=== PATIENT | male | born 1955 | race Caucasian/White ===

== ENCOUNTER 2024-02-23 10:14 | Outpatient (CLI) | payer MEDICARE, OTHER, SELFPAY | END 2024-02-23 10:15 | disposition home or self-care (01) | PROVIDERS: PCP Family Medicine; Visit Provider Family Medicine | DX: I48.0 Paroxysmal atrial fibrillation (principal); Z13.228 Encounter for screening for other metabolic disorders; Z13.220 Encounter for screening for lipoid disorders; Z12.5 Encounter for screening for malignant neoplasm of prostate | CPT/HCPCS: 80048; 80061; 85025; G0103 ==

== ENCOUNTER 2024-04-30 07:37 | Emergency (ER) | payer MEDICARE, OTHER, SELFPAY ==
[2024-04-30] VITALS (35 sets, daily range): BP systolic 95–130; BP diastolic 79–109; PULSE 89–154; RESP 18; TEMP 36.3; O2SAT 91–96; BMI 24.0
--- NOTE | 2024-04-30 08:02 | CRLHL7_ITS ---
For Patients: As a result of the Century Cures Act, medical imaging exams and procedure reports are released immediately into your electronic medical record. You may view this report before your referring provider. If you have questions, please contact your health care provider. INDICATION: Chest pain COMPARISON: None TECHNIQUE: AP semi-upright study FINDINGS: TUBES AND LINES: None. HEART AND MEDIASTINUM: Heart mildly enlarged. LUNGS AND PLEURAL SPACES: Perihilar and bilateral lower lobe airspace disease, [id number].This could be related to the asymmetric appearance/development of edema or an inflammatory process. No pleural effusion or pneumothorax. OSSEOUS STRUCTURES: Age-appropriate appearance. No acute focal finding. IMPRESSION: Mildly enlarged heart. Perihilar and bilateral lower lobe airspace disease, [id number]. Primary considerations are the asymmetric development of edema versus an inflammatory process. Normal pleural spaces. Dictated by Chandu Greer MD @ 04/30/2024 8:25:44 AM (Electronically Signed)
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
[2024-04-30 08:18] LABS: Basophils Percent Auto 0.3 % (0.0-3.0); Eosinophils Percent Auto 1.7 % (0.0-7.0); Hemoglobin* 15.5 gm/dL (13.5-17.5); Immature Granulocytes Pct Auto 0.1 %; Lymphocytes Percent Auto 63.8 % (20-44); Mean Corpuscular HGB Conc 32 gm/dL (32-36); Mean Corpuscular Hemoglobin 31 pg (26-34); Mean Corpuscular Volume 96 fL (80-100); Monocytes Percent Auto 4.3 % (0.0-11.0); Neutrophils Percent Auto 29.8 % (42.0-72.0); Platelet Count* 178 K/uL (140-440); RDW Coefficient of Variation % 15.3 % (11.5-15.5); Slide Review Reflex Yes; White Blood Count* 11.65 K/uL (4.50-11.00)
[2024-04-30 08:20] LABS: Troponin, Point-of-Care* 0.01 ng/ml (0.01-0.04)
[2024-04-30 08:30] LABS: Chloride* 106 mmol/L (96-114); Sodium* 141 mmol/L (135-149)
[2024-04-30 08:33] LABS: Anion Gap 6 mEq/L (7-15); Blood Urea Nitrogen* 18 mg/dL (7-30); Carbon Dioxide* 29 mmol/L (20-32); Creatinine* 1.1 mg/dL (0.5-1.5); Est. Creatinine Clearance* 59.59; Estimated Glomerular Filt Rate 72 ml/min
[2024-04-30 08:34] LABS: Calcium* 9.5 mg/dL (8.4-10.6); Glucose* 117 mg/dL (60-115)
[2024-04-30 08:35] LABS: Slide Review Acceptable Review (Acceptable)
[2024-04-30 08:39] LABS: D Dimer Quantitative* 1.58 ug/ml (0.00-0.50)
--- NOTE | 2024-04-30 08:41 | CRLHL7_ITS ---
For Patients: As a result of the 21st Century Cures Act, medical imaging exams and procedure reports are released immediately into your electronic medical record. You may view this report before your referring provider. If you have questions, please contact your health care provider. INDICATION: Chest pressure. COMPARISON: None TECHNIQUE: : CT examination of the chest was performed with the uneventful intravenous administration of 95 cc of Isovue 370 while thin axial sections were obtained from above the apices of the lungs to the lung bases. The examination was timed as a pulmonary artery angiogram. Please note that all CT scans at this facility use dose modulation, iterative reconstruction, and/or weight-based dosing when appropriate to reduce radiation dose to as low as reasonably achievable. FINDINGS: : HEART and MEDIASTINUM: The heart is enlarged. There is no mediastinal or hilar adenopathy or mass. A small pericardial effusion is noted. There is aneurysmal dilation of the aorta. This most affects the arch and the ascending aorta. Ascending aorta maximally measures about 5 centimeters. Please be aware that the bolus timing and this study was entirely pulmonary arterial and therefore I can not evaluate for the presence or absence of aortic dissection or other acute aortic pathology. PULMONARY ARTERIAL CIRCULATION: There is no visible intraluminal filling defect to suggest pulmonary embolus. LUNGS and PLEURAL SPACES: Thickened interlobular septa with areas of ground-glass and linear opacities at the lung bases. Small bilateral effusions, right greater than left. The findings primarily represent interstitial edema. There are areas of atelectasis have probably developing alveolar edema. No mark focal consolidation or mass. VISUALIZED UPPER ABDOMEN: The there has been a cholecystectomy. There is a left renal mass which is hyperdense measuring 2.8 centimeters. This could be a hyperdense cyst or a neoplasm. Follow-up formal evaluation recommended in the nonacute care setting. OSSEOUS STRUCTURES: Age-appropriate appearance. No acute fracture or destructive process. TUBES and LINES: None. IMPRESSION: 1. There is no finding of pulmonary embolus. 2. Fusiform aneurysmal dilation of the aorta, especially the ascending aorta and the arch. Maximum diameter of the ascending aorta is 5 centimeters. Bolus timing is purely pulmonary arterial and therefore I can not evaluate for aortic dissection or other acute aortic pathology on this exam. 3. Lung findings suggest a combination of interstitial edema with mild alveolar edema and dependent atelectasis. Small bilateral effusions, right greater than left. No focal consolidation or mass. 4. Left renal mass measuring 2.8 centimeters could be a hyperdense cyst or a neoplasm. Follow-up evaluation recommended in the nonacute setting. Please note that all CT scans at this facility use dose modulation, iterative reconstruction, and/or weight-based dosing when appropriate to reduce radiation dose to as low as reasonably achievable. Dictated by Chandu Greer MD @ 04/30/2024 9:36:27 AM (Electronically Signed)
[2024-04-30] MEDS: dilTIAZem 5 MG/ML inj 18 MG IVP (08:44)
[2024-04-30 08:46] LABS: Troponin I* < 0.01 ng/mL (0.01-0.04)
[2024-04-30 10:07] LABS: NT Pro B Type NatriureticPept* 2310 pg/mL
[2024-04-30] MEDS: dilTIAZem 5 MG/ML inj 25 MG IVP (10:14)
[2024-04-30] MEDS: dilTIAZem 120 MG CAP.ER.24H PO (13:48)
== END 2024-04-30 14:15 | disposition home or self-care (01) ==
PROVIDERS: Internal Medicine; Emergency Provider Student in an Organized Health Care Education/Training Program; PCP Family Medicine
DX: I48.91 Unspecified atrial fibrillation (principal)
CPT/HCPCS: 36415; 71045; 71275; 80048; 83880; 84484; 85025; 85379; 93005; 99283; 99284; 99285; A9270; Q9967

== ENCOUNTER 2024-05-07 12:40 | Inpatient (IN) | payer MEDICARE, OTHER, SELFPAY ==
[2024-05-07] VITALS (40 sets, daily range): BP systolic 91–120; BP diastolic 68–109; PULSE 75–145; RESP 18–28; TEMP 36.6–36.7; O2SAT 89–96; BMI 24.4; BMI 25.7
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
--- NOTE | 2024-05-07 13:17 | CRLHL7_ITS ---
For Patients: As a result of the Century Cures Act, medical imaging exams and procedure reports are released immediately into your electronic medical record. You may view this report before your referring provider. If you have questions, please contact your health care provider. Indication: Rapid heart rate Comparison: Single-view chest April 30, 2024 Technique: Single AP view chest Findings: There is hyperinflation and chronic interstitial change. There are increased interstitial markings likely representing pulmonary edema. There is minimal basilar atelectasis and parenchymal scar. There is no pneumothorax. The cardiac silhouette is mildly prominent with minimal aortic tortuosity. The bony thorax is grossly intact. Impression: Mildly increased interstitial markings likely representing mild pulmonary edema. Dictated by Chilo Rooney MD @ 05/07/2024 4:34:53 PM (Electronically Signed)
[2024-05-07] MEDS: 0.9 % SODIUM CHLORIDE 1000 ml 1,000 ML IV (13:35)
[2024-05-07] MEDS: dilTIAZem 5 MG/ML inj 10 MG IVP ×2 (13:36→14:38)
[2024-05-07 13:51] LABS: Basophils Percent Auto 0.3 % (0.0-3.0); Eosinophils Percent Auto 1.1 % (0.0-7.0); Hematocrit 46.2 % (37.0-53.0); Hemoglobin* 14.8 gm/dL (13.5-17.5); Immature Granulocytes Pct Auto 0.2 %; Lymphocytes Percent Auto 54.5 % (20-44); Mean Corpuscular HGB Conc 32 gm/dL (32-36); Mean Corpuscular Hemoglobin 31 pg (26-34); Mean Corpuscular Volume 97 fL (80-100); Monocytes Percent Auto 5.2 % (0.0-11.0); Neutrophils Percent Auto 38.7 % (42.0-72.0); Platelet Count* 173 K/uL (140-440); RDW Coefficient of Variation % 15.1 % (11.5-15.5); Red Blood Count 4.77 m/uL (4.30-5.90); White Blood Count* 11.37 K/uL (4.50-11.00)
[2024-05-07 13:58] LABS: Troponin, Point-of-Care* 0.01 ng/ml (0.01-0.04)
[2024-05-07 13:59] LABS: Slide Review Reflex Yes
[2024-05-07 14:07] LABS: Chloride* 104 mmol/L (96-114)
[2024-05-07 14:08] LABS: Potassium* 4.7 mmol/L (3.6-5.1); Sodium* 137 mmol/L (135-149)
[2024-05-07 14:10] LABS: Alkaline Phosphatase* 70 U/L (40-150); Anion Gap 7 mEq/L (7-15); Aspartate Amino Transferase* 110 U/L (12-35); Bilirubin Total* 0.5 mg/dL (0.1-1.5); Carbon Dioxide* 26 mmol/L (20-32); Creatinine* 1.2 mg/dL (0.5-1.5); Est. Creatinine Clearance* 56.46; Estimated Glomerular Filt Rate 65 ml/min; Total Protein* 6.5 g/dL (6.0-8.3)
[2024-05-07 14:11] LABS: Alanine Aminotransferase* 132 U/L (4-50); Blood Urea Nitrogen* 26 mg/dL (7-30); Calcium* 9.3 mg/dL (8.4-10.6); Glucose* 103 mg/dL (60-115); Magnesium* 2.4 mg/dL (1.5-2.6)
[2024-05-07 14:13] LABS: Slide Review Acceptable Review (Acceptable)
[2024-05-07 14:15] LABS: C Reactive Protein* < 0.5 mg/dL (0.5-1.0)
[2024-05-07 14:20] LABS: NT Pro B Type NatriureticPept* 2780 pg/mL
[2024-05-07] MEDS: METOPROLOL TARTRATE 25 MG TABLET PO (14:37)
[2024-05-07 15:41] LABS: Troponin, Point-of-Care* 0.02 ng/ml (0.01-0.04)
[2024-05-07 16:54] LABS: PCR FLU A Negative PCR FLU A (Negative); PCR FLU B Negative PCR FLU B (Negative); PCR RSV Negative PCR RSV (Negative); SARS PCR* Negative SARS-CoV-2 (Negative)
[2024-05-07] MEDS: FUROSEMIDE 10 MG/ML inj 40 MG IVP (17:19)
[2024-05-07] MEDS: dilTIAZem HCL 125 MG in 0.9 % SODIUM CHLORIDE 100 ml 100 ML IVPB (17:21)
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
[2024-05-07] MEDS: APIXABAN 5 MG TABLET PO (20:39)
[2024-05-07] MEDS: METOPROLOL TARTRATE 50 MG TABLET PO (20:39)
--- NOTE | 2024-05-07 23:11 | CRLHL7_ITS ---
For Patients: As a result of the Century Cures Act, medical imaging exams and procedure reports are released immediately into your electronic medical record. You may view this report before your referring provider. If you have questions, please contact your health care provider. INDICATION: Left lower quadrant abdominal pain. History of diverticulitis and skin cancer. TECHNIQUE: CT of the abdomen and pelvis without IV contrast. Coronal and sagittal reconstructions. COMPARISON: CT chest 04/30/2024. FINDINGS: Liver: Unremarkable. Gallbladder and bile ducts: Cholecystectomy. No biliary dilatation. Spleen: Unremarkable. Pancreas: Unremarkable. Adrenal glands: Unremarkable. Kidneys, Ureters, and Bladder: Again seen is a 2.8 cm hyperdense exophytic lesion arising from the posterior left kidney. No hydronephrosis or ureteral dilation. No obstructing urinary calculi identified. Circumferential bladder wall thickening. Reproductive organs: Moderately enlarged prostate gland. GI tract/Peritoneum: No small bowel dilation. A small bowel loop protrudes into the opening of a left inguinal hernia without current signs of inflammation or obstruction (series 2 image 114). Moderate amount of stool. Colonic diverticulosis. There is mild focal wall thickening at the junction of the descending and sigmoid colon with surrounding inflammatory fat stranding. Findings are compatible with acute diverticulitis. No intraperitoneal free air or fluid. No evidence of abscess. The appendix is not identified. Vasculature: Abdominal aorta is normal in caliber. Aortoiliac vascular calcifications. Lymph nodes: No lymphadenopathy. Abdominal Wall: Small bilateral inguinal hernias. The right inguinal canal is opacified. A small bowel loop protrudes into the left inguinal hernia as described above. Bones: Degenerative changes of the spine. Lower chest: Small bilateral pleural effusions with bibasilar atelectasis. IMPRESSION: 1. Acute uncomplicated diverticulitis at the junction of the descending and sigmoid colon. No evidence of perforation or abscess. 2. Bladder wall thickening could be secondary to chronic outlet obstruction by the enlarged prostate gland, however correlation with urinalysis is recommended. 3. Indeterminate hyperdense left renal lesion. Recommend nonemergent ultrasound evaluation. 4. Small bilateral pleural effusions. Please note that all CT scans at this facility use dose modulation, iterative reconstruction, and/or weight-based dosing when appropriate to reduce radiation dose to as low as reasonably achievable. Dictated by Hannah Joseph MD @ 05/08/2024 1:16:06 AM (Electronically Signed)
--- NOTE | 2024-05-07 23:20 | P.EN_ITS ---
Chart Event Note Date Seen: 05/07/24 Chart Event Note: RN informed me patient now c/o LLQ abdominal and pelvic pain, mainly to palpation but minimally when getting up to go to the bathroom. At rest and not palpating himself he has no pain. With palpation or ambulation the pain intensity is as high as 2/10. The pain rapidly resolves after sitting or laying down or when he stops toughing and palpating the LLQ of his abdomen and pelvis. He had a similar LLQ abdominal and pelvic pain and discomfort about 1 week ago when he first starting taking oral diltiazem upon been assessed and treated in the ED at [facility] for Atrial Fibrillation and Rapid Ventricular response. He saw his PCP about 3 days later, stopped the diltiazem and started metoprolol, thinking that the diltiazem somehow caused this pain, and interestingly enough, the pain resolved until now that he is on a diltiazem drip. He had received 2 diltiazem IV boluses in the ED and then was started on a diltiazem drip, with a rate as high as 15 mg/hour. Presently the diltiazem drip rate is down to 5 mg/hour with resting HR of about 80. Additionally, he believes he had similar pain when he was diagnosed and treated with antibiotics for diverticulitis about 10 years ago, in the fall of 2013. Denies nausea, vomiting, diarrhea, constipation, GI blood loss of any kind, fevers, rigors, or diaphoresis. No recent trauma or injury. No recent illnesses. Denies dysuria, urgency, frequency, urinary retention, or hematuria. He feels that the chest palpitations and dyspnea are improved now compared to admission. On exam: Appears comfortable sitting up in his bed with HOB elevated about 45 degrees and legs stretched out in front of him. Able to engage in conversation without any indication of discomfort or pain. Able to move about in bed without any apparent discomfort. He demonstrates to me where the tender spot is in the LLQ of his abd/pelvis and winces when he palpates himself in this area. The skin in this area appears normal, is not warm to touch. Nor does he have dysesthesia to light touch in this area. I am able to reproduce the discomfort by palpating moderately in the LLQ. No rebound. Active bowel sounds. Remainder of abdomen is soft and non-tender. Lungs are CTA. No CVA tenderness. Heart tones chaotic with normal S1S2, HR 80. Independent in transfer, station, gait and appears comfortable with these transitions. Impression: 1. New LLQ abd/pelvic pain. Uncertain etiology. D/Dx: diverticulitis, orther GI or disorder, including UTI, hydronephrosis, urogenital stone. Also consider iatrogenic adverse reaction to diltiazem. 2. A Fib RVR - rate controlled now and down titrating diltiazem drip as I am uptitrating oral metoprolol. Still on apixaban for anticoagulation. 3. Heart failure, most likely diastolic - continue furosemide diuresis for now and planned ECHO Plan: 1. CT abd/pelvis without contrast to assess 2. UA/UC 3. Continue with efforts to control A Fib rate 4. Consider additional diagnostic and interventional measures with findings of these studies 5. Reviewed impression and plans with patient and , answered their questions, and they are agreeable.
[2024-05-07 23:33] LABS: Appearance Urine Clear (Clear); Bilirubin Urine Negative (Negative); Blood Urine Trace-intact (Negative); Color Urine Yellow (Yellow); Glucose Urine Negative (Negative); Ketones Urine Negative (Negative); Leukocyte Esterase Urine Negative (Negative); Nitrite Urine Negative (Negative); Protein Urine Trace (Negative); Specific Gravity Urine 1.015 (1.000-1.030); Urobilinogen Urine 0.2 (0.2-1.0)
[2024-05-07 23:47] LABS: Bacteria Urine Few; Fine Granular Casts Urine Few; RBC Urine 0-2 (0-2); Squamous Epithelial Cell Urine Few (None-Few); WBC Urine 0-2 (0-5)
[2024-05-08] VITALS (45 sets, daily range): BP systolic 78–129; BP diastolic 59–96; PULSE 85–124; RESP 14–18; TEMP 36.7; O2SAT 90–96
--- NOTE | 2024-05-08 00:16 | PC.NURSE ---
Progress note: MD was updated on pt current status at 0013, verbal order to pause Dilt infusion received.
[2024-05-08] MEDS: SODIUM CHLORIDE 0.9 % (FLUSH) 10 ML SYRINGE 5 ML IVF ×3 (02:34→20:23)
[2024-05-08] MEDS: METOPROLOL TARTRATE 1 MG/ML inj 5 MG IVP (02:34)
--- NOTE | 2024-05-08 02:57 | P.EN_ITS ---
Chart Event Note Chart Event Note: I was called by nursing staff for a CT scan result that has returned on a CT scan that was ordered from earlier this morning. Apparently the patient had been having some abdominal pain and he described the pain as much like when he had diverticulitis about [address] scan did in fact show acute uncomplicated diverticulitis at the junction of the descending and sigmoid colon with no evidence of perforation or abscess. It also showed an indeterminant hyperdense left renal lesion with recommendations for nonemergent ultrasound evaluation?please see the report below. At this time I will order some IV Zosyn for coverage of the acute diverticulitis and will defer the nonemergent ultraso und to be ordered in the morning. CT scan of the abdomen pelvis:IMPRESSION: 1. Acute uncomplicated diverticulitis at the junction of the descending and sigmoid colon. No evidence of perforation or abscess. 2. Bladder wall thickening could be secondary to chronic outlet obstruction by the enlarged prostate gland, however correlation with urinalysis is recommended. 3. Indeterminate hyperdense left renal lesion. Recommend nonemergent ultrasound evaluation. 4. Small bilateral pleural effusions. Mariusz Manuel MD
[2024-05-08] MEDS: PIPERACILLIN/TAZOBACTAM 3.375 GM in 0.9 % SODIUM CHLORIDE Mini-bag 100 ML IVPB ×4 (04:00→20:22)
--- NOTE | 2024-05-08 06:41 | PC.NURSE ---
Shift note: No c/o chest pain, HR 80ies-90ies overnight, Dilt drip was stopped per MD verbal order. Around 3-4 am HR occasionally in 100th, PRN Metoprolol administered, 6 am pt HR is 90ies -110 th, will report to oncoming MD. Pt is independent in the room, no c/o lightheadedness or dizziness, no nausea, no SOB. He c/o sudden onset of abdominal pain 4/10 in lower part of abd. Evening MD was notified, work up was ordered, see new orders for treatment. Spouse in the room throughout the night.
[2024-05-08 06:51] LABS: HCO3 VBG 27 mmol/L (21-28); PCO2 VBG 40 mmHG (40-50); PO2 VBG 34.9 mmHG (25-47); pH VBG 7.441 (7.32-7.43)
[2024-05-08 06:52] LABS: Hemoglobin* 14.1 gm/dL (13.5-17.5); Mean Corpuscular HGB Conc 33 gm/dL (32-36); Mean Corpuscular Hemoglobin 31 pg (26-34); Mean Corpuscular Volume 96 fL (80-100); Platelet Count* 167 K/uL (140-440); Red Blood Count 4.49 m/uL (4.30-5.90); White Blood Count* 11.65 K/uL (4.50-11.00)
[2024-05-08 07:03] LABS: Slide Review Reflex No
--- NOTE | 2024-05-08 07:07 | PM.IMPN1 ---
Progress Note: A&P Assessment and plan (1) Atrial fibrillation with rapid ventricular response: Problem details: - admit for rate control given relative unresponsiveness in the emergency department - IV diltiazem drip, added oral IR Diltiazem Q6H with plan to transition to ER Diltiazem - continue with apixaban anticoagulation and instructed patient and on need for wearing necklace or bracelet that indicates he is anticoagulated - continuous cardiac monitoring, serial electrocardiogram, serial troponin I, daily weight, echocardiogram - has an outpatient cardiology appointment 1st week in May which he is to keep Status: Acute (2) CHF (congestive heart failure): Problem details: - single dose of furosemide IV given in emergency department - daily oral furosemide starting tomorrow 40 mg - daily weight - echocardiogram to discern for possible anatomical abnormalities, systolic versus diastolic heart failure, etc Status: Acute (3) Paroxysmal atrial fibrillation: Problem details: 07/25/21: Donn's Vasc Score = 1 05/07/24: Chads Vasc score = 2, on apixaban 5 mg BID Status: Chronic (4) Diverticulitis: Problem details: - noted on 05/07/24 CT scan, on Zosyn Status: Acute Plan - TTE, transition to oral Diltiazem, continue telemetry - if remains stable, possible d/c home tomorrow - updated at bedside, questions answered Subjective Date Seen: 05/08/24 Interval history: Fermín was admitted last night for a fib with RVR. History of a fib; seen in ER on 04/30 with HR in the 130s. At that time, he was given an Rx for Diltiazem 240mg daily. He took this for 3 days, then saw Dr. Goins (PCP) on 05/03. HR still in the 120s during that visit, and Fermín was worried about new LLQ abdominal pain as a possible side effect of Diltiazem. Dr. Goins transitioned him to Metoprolol, added Lasix, and ordered a Cardiology consult. Since 05/03, Fermín has remained intermittently in a fib RVR (HR 60s-160s) with persistent LLQ pain. CT Ab/Pelvis revealed diverticulitis, Zosyn initiated 05/07. For afib with RVR: Diltiazem drip initiated, did well on this and it was discontinued around 0300. Starting at 0700, HR increased again into the 120s-130s and he is amenable to restarting this, in addition to IR oral diltiazem. TTE is scheduled for today. Patient has no concerns for the hospitalist team. Exam Narrative: Exam Narrative: GEN: Alert and oriented, nontoxic and laying comfortably in bed HEENT: Normal external ears, EOMIs bilaterally, no scleral icterus CV: Irregular rhythm with rate in the 100s R: LCTA bilaterally without concerning wheezing, air movement adequate Ext: wwp, no concerning edema Skin: No concerning skin lesions or rashes on exposed skin Neuro: No focal deficits, no resting tremor Psych: Appropriate Const: Vital Signs, click to edit/add: Vital Signs - 24 hr 05/07/24 12:56 05/07/24 13:12 05/07/24 13:13 Temperature 97.9 F Pulse Rate 120 H 127 H Pulse Rate [Pulse Oximeter] 129 H Respiratory Rate 28 H Blood Pressure 114/99 H Blood Pressure [Le ft Radial Artery] Blood Pressure [Ri ght Radial Artery] Blood Pressure [Ri ght Upper Arm] 112/79 Pulse Oximetry 96 96 96 Oxygen Delivery Me thod Room Air 05/07/24 13:30 05/07/24 14:00 05/07/24 14:07 Temperature Pulse Rate 110 H 106 H 101 H Pulse Rate [Pulse Oximeter] Respiratory Rate Blood Pressure 107/92 H Blood Pressure [Le ft Radial Artery] Blood Pressure [Ri ght Radial Artery] Blood Pressure [Ri ght Upper Arm] Pulse Oximetry 95 91 91 Oxygen Delivery Me thod 05/07/24 14:08 05/07/24 14:30 05/07/24 14:32 Temperature Pulse Rate 98 145 H 107 H Pulse Rate [Pulse Oximeter] Respiratory Rate Blood Pressure 114/82 Blood Pressure [Le ft Radial Artery] Blood Pressure [Ri ght Radial Artery] Blood Pressure [Ri ght Upper Arm] Pulse Oximetry 93 90 92 Oxygen Delivery Me thod 05/07/24 14:33 05/07/24 15:00 05/07/24 15:02 Temperature Pulse Rate 121 H 80 89 Pulse Rate [Pulse Oximeter] Respiratory Rate Blood Pressure 94/76 Blood Pressure [Le ft Radial Artery] Blood Pressure [Ri ght Radial Artery] Blood Pressure [Ri ght Upper Arm] Pulse Oximetry 90 91 89 Oxygen Delivery Me thod 05/07/24 15:03 05/07/24 15:30 05/07/24 15:32 Temperature Pulse Rate 87 88 99 Pulse Rate [Pulse Oximeter] Respiratory Rate Blood Pressure 103/79 Blood Pressure [Le ft Radial Artery] Blood Pressure [Ri ght Radial Artery] Blood Pressure [Ri ght Upper Arm] Pulse Oximetry 93 94 90 Oxygen Delivery Me thod 05/07/24 15:33 05/07/24 16:00 05/07/24 16:02 Temperature Pulse Rate 89 95 85 Pulse Rate [Pulse Oximeter] Respiratory Rate Blood Pressure 109/84 Blood Pressure [Le ft Radial Artery] Blood Pressure [Ri ght Radial Artery] Blood Pressure [Ri ght Upper Arm] Pulse Oximetry 91 94 94 Oxygen Delivery Me thod 05/07/24 16:03 05/07/24 16:30 05/07/24 16:31 Temperature Pulse Rate 95 95 97 Pulse Rate [Pulse Oximeter] Respiratory Rate Blood Pressure 105/91 H Blood Pressure [Le ft Radial Artery] Blood Pressure [Ri ght Radial Artery] Blood Pressure [Ri ght Upper Arm] Pulse Oximetry 93 94 94 Oxygen Delivery Me thod 05/07/24 17:00 05/07/24 17:01 05/07/24 17:02 Temperature Pulse Rate 95 102 H 94 Pulse Rate [Pulse Oximeter] Respiratory Rate Blood Pressure 114/87 Blood Pressure [Le ft Radial Artery] Blood Pressure [Ri ght Radial Artery] Blood Pressure [Ri ght Upper Arm] Pulse Oximetry 96 96 94 Oxygen Delivery Me thod 05/07/24 17:33 05/07/24 17:57 05/07/24 17:58 Temperature Pulse Rate 105 H 114 H 111 H Pulse Rate [Pulse Oximeter] Respiratory Rate Blood Pressure 120/109 H Blood Pressure [Le ft Radial Artery] Blood Pressure [Ri ght Radial Artery] Blood Pressure [Ri ght Upper Arm] Pulse Oximetry 94 92 93 Oxygen Delivery Me thod 05/07/24 18:00 05/07/24 18:02 05/07/24 18:30 Temperature Pulse Rate 123 H 109 H 114 H Pulse Rate [Pulse Oximeter] Respiratory Rate Blood Pressure 107/90 H Blood Pressure [Le ft Radial Artery] Blood Pressure [Ri ght Radial Artery] Blood Pressure [Ri ght Upper Arm] Pulse Oximetry 92 92 93 Oxygen Delivery Me thod 05/07/24 18:31 05/07/24 18:32 05/07/24 19:26 Temperature 98.1 F Pulse Rate 100 116 H Pulse Rate [Pulse Oximeter] 96 Respiratory Rate 18 Blood Pressure 110/87 Blood Pressure [Le ft Radial Artery] 107/89 Blood Pressure [Ri ght Radial Artery] Blood Pressure [Ri ght Upper Arm] Pulse Oximetry 92 92 92 Oxygen Delivery Me thod Room Air Nasal Can nula 05/07/24 20:00 05/07/24 20:42 05/07/24 21:00 Temperature Pulse Rate 103 H Pulse Rate [Pulse Oximeter] 90 89 Respiratory Rate 18 Blood Pressure Blood Pressure [Le ft Radial Artery] 93/72 92/76 Blood Pressure [Ri ght Radial Artery] Blood Pressure [Ri ght Upper Arm] Pulse Oximetry 94 92 Oxygen Delivery Me thod Room Air Room Air 05/07/24 21:30 05/07/24 22:00 05/07/24 22:30 Temperature Pulse Rate Pulse Rate [Pulse Oximeter] 75 82 80 Respiratory Rate 18 20 20 Blood Pressure Blood Pressure [Le ft Radial Artery] Blood Pressure [Ri ght Radial Artery] 91/76 102/81 104/68 Blood Pressure [Ri ght Upper Arm] Pulse Oximetry 93 95 95 Oxygen Delivery Me thod Room Air Room Air Room Air 05/07/24 23:00 05/07/24 23:00 05/07/24 23:00 Temperature Pulse Rate Pulse Rate [Pulse Oximeter] 94 94 Respiratory Rate 20 20 20 Blood Pressure Blood Pressure [Le ft Radial Artery] Blood Pressure [Ri ght Radial Artery] 108/84 Blood Pressure [Ri ght Upper Arm] Pulse Oximetry 95 Oxygen Delivery Me thod Room Air 05/08/24 00:00 05/08/24 00:30 05/08/24 01:00 Temperature Pulse Rate Pulse Rate [Pulse Oximeter] 90 91 101 H Respiratory Rate 16 16 16 Blood Pressure Blood Pressure [Le ft Radial Artery] Blood Pressure [Ri ght Radial Artery] 108/76 103/69 100/72 Blood Pressure [Ri ght Upper Arm] Pulse Oximetry 92 93 91 Oxygen Delivery Me thod Room Air Room Air Room Air 05/08/24 01:30 05/08/24 02:30 05/08/24 03:30 Temperature 98.1 F Pulse Rate Pulse Rate [Pulse Oximeter] 97 104 H 95 Respiratory Rate 14 16 Blood Pressure Blood Pressure [Le ft Radial Artery] Blood Pressure [Ri ght Radial Artery] 111/79 111/81 98/79 Blood Pressure [Ri ght Upper Arm] Pulse Oximetry 90 92 Oxygen Delivery Me thod Room Air Room Air Labs Labs: Laboratory Results - last 24 hr 05/07/24 05/07/24 05/07/24 13:17 13:30 15:30 WBC 11.37 H RBC 4.77 Hgb 14.8 Hct 46.2 MCV 97 MCH 31 MCHC 32 RDW Coeff of Jeffery 15.1 Plt Count 173 Neut % (Auto) 38.7 L Lymph % (Auto) 54.5 H [place] % (Auto) 5.2 Eos % (Auto) 1.1 Baso % (Auto) 0.3 Neut # (Auto) 4.40 Lymph # (Auto) 6.20 H [place] # (Auto) 0.60 Eos # (Auto) 0.10 Baso # (Auto) 0.00 Abs Immat Gran (auto) 0.00 Imm/Tot Granulo (auto) 0.2 Diff Slide Review Acceptable Review VBG pH VBG pCO2 VBG pO2 VBG HCO3 Sodium 137 Potassium 4.7 Chloride 104 Carbon Dioxide 26 Anion Gap 7 BUN 26 Creatinine 1.2 Estimated Creat Clear 56.46 Estimated GFR 65 Glucose 103 Calcium 9.3 Magnesium 2.4 Total Bilirubin 0.5 AST 110 H ALT 132 H Alkaline Phosphatase 70 C-Reactive Protein < 0.5 L NT-Pro-B Natriuret Pep 2780 Total Protein 6.5 Albumin 4.0 Urine Color Urine Appearance Urine pH Ur Specific [place] Urine Protein Urine Glucose (UA) Urine Ketones Urine Blood Urine Nitrite Urine Bilirubin Urine Urobilinogen Ur Leukocyte Esterase Urine RBC Urine WBC Ur Squamous Epith Cells Urine Bacteria Fine Granular Casts SARS-CoV-2 (PCR) Influenza Type A (PCR) Influenza Type B (PCR) RSV (PCR) Lab Acknowledgement POC Troponin I 0.01 0.02 05/07/24 05/07/24 05/07/24 16:04 19:33 23:11 WBC RBC Hgb Hct MCV MCH MCHC RDW Coeff of Jeffery Plt Count Neut % (Auto) Lymph % (Auto) [place] % (Auto) Eos % (Auto) Baso % (Auto) Neut # (Auto) Lymph # (Auto) [place] # (Auto) Eos # (Auto) Baso # (Auto) Abs Immat Gran (auto) Imm/Tot Granulo (auto) Diff Slide Review VBG pH VBG pCO2 VBG pO2 VBG HCO3 Sodium Potassium Chloride Carbon Dioxide Anion Gap BUN Creatinine Estimated Creat Clear Estimated GFR Glucose Calcium Magnesium Total Bilirubin AST ALT Alkaline Phosphatase C-Reactive Protein NT-Pro-B Natriuret Pep Total Protein Albumin Urine Color Yellow Urine Appearance Clear Urine pH 5.0 Ur Specific [place] 1.015 Urine Protein Trace A Urine Glucose (UA) Negative Urine Ketones Negative Urine Blood Trace-intact A Urine Nitrite Negative Urine Bilirubin Negative Urine Urobilinogen 0.2 Ur Leukocyte Esterase Negative Urine RBC 0-2 Urine WBC 0-2 Ur Squamous Epith Cells Few Urine Bacteria Few A Fine Granular Casts Few A SARS-CoV-2 (PCR) Negative SARS-CoV-2 Influenza Type A (PCR) Negative PCR FLU A Influenza Type B (PCR) Negative PCR FLU B RSV (PCR) Negative PCR RSV Lab Acknowledgement Test Added POC Troponin I 05/08/24 06:19 WBC 11.65 H RBC 4.49 Hgb 14.1 Hct 43.0 MCV 96 MCH 31 MCHC 33 RDW Coeff of Jeffery Plt Count 167 Neut % (Auto) Lymph % (Auto) [place] % (Auto) Eos % (Auto) Baso % (Auto) Neut # (Auto) Lymph # (Auto) [place] # (Auto) Eos # (Auto) Baso # (Auto) Abs Immat Gran (auto) Imm/Tot Granulo (auto) Diff Slide Review VBG pH 7.441 H VBG pCO2 40 VBG pO2 34.9 VBG HCO3 27 Sodium Potassium Chloride Carbon Dioxide Anion Gap BUN Creatinine Estimated Creat Clear Estimated GFR Glucose Calcium Magnesium Total Bilirubin AST ALT Alkaline Phosphatase C-Reactive Protein NT-Pro-B Natriuret Pep Total Protein Albumin Urine Color Urine Appearance Urine pH Ur Specific [place] Urine Protein Urine Glucose (UA) Urine Ketones Urine Blood Urine Nitrite Urine Bilirubin Urine Urobilinogen Ur Leukocyte Esterase Urine RBC Urine WBC Ur Squamous Epith Cells Urine Bacteria Fine Granular Casts SARS-CoV-2 (PCR) Influenza Type A (PCR) Influenza Type B (PCR) RSV (PCR) Lab Acknowledgement POC Troponin I
[2024-05-08 07:11] LABS: Chloride* 107 mmol/L (96-114); Sodium* 139 mmol/L (135-149)
[2024-05-08 07:12] LABS: Albumin* 3.4 g/dL (3.3-5.0); Potassium* 4.2 mmol/L (3.6-5.1)
[2024-05-08 07:14] LABS: Anion Gap 7 mEq/L (7-15); Carbon Dioxide* 25 mmol/L (20-32); Creatinine* 1.1 mg/dL (0.5-1.5); Est. Creatinine Clearance* 61.59; Estimated Glomerular Filt Rate 72 ml/min
[2024-05-08 07:15] LABS: Alanine Aminotransferase* 106 U/L (4-50); Alkaline Phosphatase* 59 U/L (40-150); Aspartate Amino Transferase* 59 U/L (12-35); Blood Urea Nitrogen* 22 mg/dL (7-30); Calcium* 8.6 mg/dL (8.4-10.6); Glucose* 94 mg/dL (60-115); Magnesium* 2.4 mg/dL (1.5-2.6); Total Protein* 5.7 g/dL (6.0-8.3)
[2024-05-08 07:15] LABS: Troponin I* 0.01 ng/mL (0.01-0.04)
[2024-05-08 07:28] LABS: NT Pro B Type NatriureticPept* 2080 pg/mL; Troponin I* < 0.01 ng/mL (0.01-0.04)
[2024-05-08 07:32] LABS: Procalcitonin* 0.06 ng/mL (<0.50)
[2024-05-08] MEDS: dilTIAZem 30 MG TABLET PO ×2 (08:14→13:38)
[2024-05-08] MEDS: APIXABAN 5 MG TABLET PO ×2 (09:07→20:23)
[2024-05-08] MEDS: METOPROLOL SUCCINATE (XL) 100 MG TAB 150 MG PO (09:07)
[2024-05-08] MEDS: FUROSEMIDE 20 MG TABLET 40 MG PO (09:08)
--- NOTE | 2024-05-08 18:34 | PM.EN ---
Chart Event Note Date Seen: 05/08/24 Chart Event Note: TTE preliminary report indicates EF of 32%. HFrEF, therefore stop scheduled diltiazem for negative chronotropic effects. Will Start scheduled metoprolol tartrate 25 mg po BID, and PRN metoprolol tartrate 2.5 mg q6h PRN HR greater than 100 and MAP greater than 65 mmHg. Also, will start digoxin 500 mcg po loading dose and then 125 mcg po daily beginning tomorrow morning. Will use diltiazem ans a back-up for HR control if above measures are insufficient.
[2024-05-08] MEDS: DIGOXIN 250 MCG TABLET 500 MCG PO (18:50)
--- NOTE | 2024-05-08 19:28 | PC.NURSE ---
Pt pleasant, conversational, and independent in room. See medication administration per orders for heart rate and rhythm. ECHO showed EF 32%, medication changes with this finding also in OCT. Pt and spouse educated on medication and needs for changes due to ECHO finding. Pt has healing scab on right crump due to removal for skin cancer. Scapula with sutures for skin cancer removal intact. Pt states he has appointment Friday morning in [place] with Dermatology for another tissue removal and suture removal. Pt asked if appointment needs to be cancelled that hospitalist may be able to remove sutures.
[2024-05-08] MEDS: METOPROLOL TARTRATE 25 MG TABLET PO (20:23)
[2024-05-08] MEDS: METOPROLOL TARTRATE 1 MG/ML inj 2.5 MG IVP (23:49)
[2024-05-09] MEDS: OMEPRAZOLE 20 MG CAPSULE DR PO (00:18)
[2024-05-09 02:00] VITALS: BP 112/78; PULSE 113; RESP 18; O2SAT 94
[2024-05-09] MEDS: PIPERACILLIN/TAZOBACTAM 3.375 GM in 0.9 % SODIUM CHLORIDE Mini-bag 100 ML IVPB ×2 (03:27→09:00)
[2024-05-09] MEDS: METOPROLOL TARTRATE 1 MG/ML inj 2.5 MG IVP (05:38)
[2024-05-09 07:06] LABS: Basophils Absolute Auto 0.02 K/uL (0.00-0.30); Basophils Percent Auto 0.2 % (0.0-3.0); Hemoglobin* 14.4 gm/dL (13.5-17.5); Immature Granulocytes Abs Auto 0.01 K/uL (0.00-0.30); Immature Granulocytes Pct Auto 0.1 %; Lymphocytes Percent Auto 57.1 % (20-44); Mean Corpuscular HGB Conc 32 gm/dL (32-36); Mean Corpuscular Hemoglobin 31 pg (26-34); Mean Corpuscular Volume 97 fL (80-100); Monocytes Percent Auto 6.2 % (0.0-11.0); Neutrophils Percent Auto 34.4 % (42.0-72.0); Platelet Count* 178 K/uL (140-440); RDW Coefficient of Variation % 15.4 % (11.5-15.5); Red Blood Count 4.64 m/uL (4.30-5.90); White Blood Count* 10.06 K/uL (4.50-11.00)
[2024-05-09 07:17] LABS: Slide Review Reflex No
[2024-05-09 07:20] LABS: Albumin* 3.4 g/dL (3.3-5.0); Chloride* 108 mmol/L (96-114); Sodium* 139 mmol/L (135-149)
[2024-05-09 07:21] LABS: Potassium* 4.2 mmol/L (3.6-5.1)
[2024-05-09 07:22] LABS: Creatinine* 1.3 mg/dL (0.5-1.5); Est. Creatinine Clearance* 52.12; Estimated Glomerular Filt Rate 59 ml/min
[2024-05-09 07:23] LABS: Alanine Aminotransferase* 81 U/L (4-50); Alkaline Phosphatase* 53 U/L (40-150); Anion Gap 6 mEq/L (7-15); Aspartate Amino Transferase* 38 U/L (12-35); Bilirubin Direct* 0.2 mg/dL (0.0-0.5); Blood Urea Nitrogen* 22 mg/dL (7-30); Calcium* 8.5 mg/dL (8.4-10.6); Carbon Dioxide* 25 mmol/L (20-32); Glucose* 108 mg/dL (60-115); Total Protein* 5.7 g/dL (6.0-8.3)
[2024-05-09 07:24] LABS: Magnesium* 2.5 mg/dL (1.5-2.6)
--- NOTE | 2024-05-09 07:24 | PC.NURSE ---
19-: pleasant and cooperative. Indep in room. PRN metoprolol given x 2 for HR >100 for 10 mins. Pt had 2 loose stools overnight. Pt c/o stomach acid?received order for omeprazole, offered relief.
[2024-05-09 08:40] VITALS: BP 115/95; PULSE 124; RESP 18; TEMP 36.7; O2SAT 94
[2024-05-09 08:58] VITALS: PULSE 129
[2024-05-09] MEDS: SODIUM CHLORIDE 0.9 % (FLUSH) 10 ML SYRINGE 5 ML IVF (08:58)
[2024-05-09] MEDS: METOPROLOL TARTRATE 25 MG TABLET PO (08:58)
[2024-05-09] MEDS: DIGOXIN 125 MCG TABLET PO (08:58)
[2024-05-09] MEDS: APIXABAN 5 MG TABLET PO (08:59)
[2024-05-09] MEDS: FUROSEMIDE 20 MG TABLET 40 MG PO (08:59)
[2024-05-09] MEDS: METOPROLOL SUCCINATE (XL) 100 MG TAB 150 MG PO (08:59)
--- NOTE | 2024-05-09 09:20 | P.DS_ITS ---
Transfer Discharge Sum: Prov Provider Date Seen: 05/09/24 Date of admission: 05/07/24 19:13 Primary care physician: Ab Goins MD Attending physician on discharge: Nuris San Discharging clinician: Nuris San Anticipated date of transfer: 05/09/24 Receiving physician/facility: [facility] DS: Diagnosis Discharge Diagnosis (1) Atrial fibrillation with rapid ventricular response: Status: Acute Problem details: - h/o paroxysmal a fib for years, first noted symptoms of RVR on 04/30/24 - seen in ED 04/30, given Rx for 240mg ER Cardizem QD without response; transitioned to Metoprolol 05/06 during PCP visit (continued to note HR from 50- 160 at home) - admitted to hospital 05/07/24 with persistent RVR - initially placed on Diltiazem gtt with HR 90-110s, transitioned to Metoprolol after TTE results - HR remains 110s-130s on Metoprolol 25mg BID (in addition to DIGOXIN, given 500mcg 05/08 and 125mcg 05/09) - given persistent RVR, HFrEF, GODFREY, reviewed with Dr. Maddox of [facility] Cardiology on 05/09, who accepts patient in transfer for possible ISELA/Cardioversion (2) Diverticulitis: Status: Acute Problem details: - noted on 05/07/24 CT scan, on Zosyn (3) HFrEF (heart failure with reduced ejection fraction): Status: Acute Problem details: - TTE on 05/08/24 Final Impressions: 1. Normal LV size, severely reduced global systolic function with an estimated EF of 25 - 30%. 2. Posterior wall, mid lateral segment, basal lateral segment, and basal inferior segment are abnormal. 3. Right ventricular cavity size is mildly enlarged, global systolic RV f unction is moderately reduced. 4. Moderately enlarged left atrium. 5. The mitral valve is sclerotic with probably severe mitral regurgitation. 6. Severe tricuspid regurgitation. 7. Tricuspid valve is teathered. 8. The ascending aorta is dilated with a maximal diameter of 4.5 cm. Transfer Discharge Sum: Med Medications Active and Home Medications: Home Medications sesame oil 1 ea miscellaneous QDAY 02/18/24 [History Confirmed 05/03/24] HP series 90 PO 02/23/24 [History Confirmed 05/03/24] Ligaplex 2 tab PO BID 02/23/24 [History Confirmed 05/03/24] allegany cardio PO 02/23/24 [History Confirmed 05/03/24] anti-V PO 02/23/24 [History Confirmed 05/03/24] cardio plus PO 02/23/24 [History Confirmed 05/03/24] cataplex B core PO 02/23/24 [History Confirmed 05/03/24] core milk thistle See Rx Instructions PO .COMPLEX 02/23/24 [History Confirmed 05/03/24] niacinamide 500 mg tablet 500 mg PO BID 02/23/24 [History Confirmed 05/03/24] reform collagen PO 02/23/24 [History Confirmed 05/03/24] tuna omega 3 oil PO 02/23/24 [History Confirmed 05/03/24] Claritin 04/30/24 [History Confirmed 05/03/24] apixaban 5 mg tablet (Eliquis) 5 mg PO BID #60 tabs 04/30/24 [Rx Confirmed 05/07/24] furosemide 20 mg tablet (Lasix) 20 mg PO QAM #30 tabs 05/03/24 [Rx Confirmed 05/07/24] metoprolol tartrate 50 mg tablet 50 mg PO BID #60 tabs 05/03/24 [Rx Confirmed 05/07/24] Active Medications Acetaminophen (Acetaminophen 325 Mg Tablet) 650 mg PO Q6H PRN Apixaban (Apixaban 5 Mg Tablet) 5 mg PO BID [facility] Last Admin: 05/09/24 08:59 Dose: 5 mg Digoxin (Digoxin 125 Mcg Tablet) 125 mcg PO DAILY [facility] Last Admin: 05/09/24 08:58 Dose: 125 mcg Diltiazem HCl (Diltiazem 30 Mg Tablet) 30 mg PO Q6H PRN PRN Reason: tachycardia Furosemide (Furosemide 20 Mg Tablet) 40 mg PO QAM [facility] Last Admin: 05/09/24 08:59 Dose: 40 mg Piperacillin Sod/Tazobactam (Sod 3.375 gm/ Sodium Chloride) 100 mls @ 200 mls/hr IVPB Q6H [facility] Last Admin: 05/09/24 09:00 Dose: 200 mls/hr Metoprolol Succinate (Metoprolol Succinate (Xl) 100 Mg Tab) 150 mg PO DAILY [facility] Last Admin: 05/09/24 08:59 Dose: 150 mg Metoprolol Tartrate (Metoprolol Tartrate 25 Mg Tablet) 25 mg PO BID [facility] Last Admin: 05/09/24 08:58 Dose: 25 mg Metoprolol Tartrate (Metoprolol Tartrate 1 Mg/Ml Inj) 2.5 mg IVP Q6H PRN PRN Reason: tachycardia Last Admin: 05/09/24 05:38 Dose: 2.5 mg Ondansetron HCl (Ondansetron Odt 4 Mg Tab) 4 mg PO Q6H PRN Senna/Docusate Sodium (Sennosides/Docusate Tablet) 1 tab PO DAILY PRN Sodium Chloride (Sodium Chloride 0.9 % (Flush) 10 Ml Syringe) 5 ml IVF FLUSHPRN PRN Last Admin: 05/08/24 02:34 Dose: 5 ml Sodium Chloride (Sodium Chloride 0.9 % (Flush) 10 Ml Syringe) 5 ml IVF BID [facility] Last Admin: 05/09/24 08:58 Dose: 5 ml Transfer Discharge Sum: Hosp Hospital Course Hospital course: Earnest Fletcher is a 69 year old male who presented to the hospital on 05/07/2024 with dyspnea on exertion in the setting of persistent atrial fibrillation with RVR. Fermín has a history of atrial fibrillation, paroxysmal; has been in persistent AFib with paroxysmal RVR since 04/30. 04/30: Seen in emergency room, heart rate in the 130s. Given Rx for Cardizem 240 mg ER tablets to take daily with close PCP follow-up 05/03: Seen by PCP, heart rate 120s. Having abdominal pain; concern for Cardizem side effect, also noting lower extremity edema. Transitioned to beta-jordan + furosemide, cardiology referral placed 05/07: Persistently high HR+h GODFREY; presented to the ER, persistent RVR. Diltiazem gtt initiated, HR improved to 90-110s. CT scan for abdominal pain: uncomplicated diverticulitis; Zosyn initiated 05/08: TTE obtained revealing severely reduced systolic function, EF 25-30% multiple wall motion abnormalities, severe MR and TR. Transitioned from diltiazem to metoprolol, initiated Digoxin 500mcg 05/09: On 125mcg Digoxin and 25mg BID Metoprolol; continues to have HR 120-130. Given HFrEF, persistent RVR, GODFREY; reviewed with Dr. Maddox of [facility] Cardiology who accepts patient in transfer Time Spent with Patient Time attestation: Total time spent providing and/or coordinating transfer services: Total time spent: Greater than 30 minutes Exam Narrative: Exam Narrative: GEN: Alert and oriented, nontoxic HEENT: EOMIs bilaterally, no scleral icterus CV: Irregularly irregular, rate 130s R: LCTA bilaterally without concerning wheezing Ext: wwp, no concerning edema Skin: No concerning skin lesions or rashes on exposed skin Neuro: Nonfocal Psych: Appropriate Const: Vital Signs, click to edit/add: Vital Signs - 24 hr 05/08/24 09:30 05/08/24 09:45 05/08/24 10:00 Pulse Rate Pulse Rate [Pulse Oximeter] 124 H 85 100 Respiratory Rate Blood Pressure [Ri ght Radial Artery] 98/84 82/59 L 87/74 L Pulse Oximetry Oxygen Delivery Me thod 05/08/24 10:15 05/08/24 10:37 05/08/24 10:45 Pulse Rate Pulse Rate [Pulse Oximeter] 97 91 106 H Respiratory Rate 16 Blood Pressure [Ri ght Radial Artery] 87/71 L 88/67 L 91/77 Pulse Oximetry 90 90 Oxygen Delivery Me thod 05/08/24 11:00 05/08/24 11:15 05/08/24 11:30 Pulse Rate Pulse Rate [Pulse Oximeter] 95 97 Respiratory Rate 18 Blood Pressure [Ri ght Radial Artery] 78/62 L 79/64 L 78/68 L Pulse Oximetry 92 92 94 Oxygen Delivery Me thod Room Air Room Air 05/08/24 11:45 05/08/24 12:00 05/08/24 12:30 Pulse Rate Pulse Rate [Pulse Oximeter] 91 91 100 Respiratory Rate Blood Pressure [Ri ght Radial Artery] 89/63 L 96/71 96/80 Pulse Oximetry 95 95 94 Oxygen Delivery Me thod Room Air Room Air Room Air 05/08/24 13:00 05/08/24 13:15 05/08/24 13:30 Pulse Rate Pulse Rate [Pulse Oximeter] 95 100 100 Respiratory Rate Blood Pressure [Ri ght Radial Artery] 94/75 100/84 98/82 Pulse Oximetry 93 94 Oxygen Delivery Me thod Room Air Room Air 05/08/24 14:00 05/08/24 14:30 05/08/24 15:00 Pulse Rate 104 H Pulse Rate [Pulse Oximeter] 90 113 H Respiratory Rate Blood Pressure [Ri ght Radial Artery] 89/67 L 90/70 Pulse Oximetry Oxygen Delivery Me thod 05/08/24 15:00 05/08/24 15:00 05/08/24 15:00 Pulse Rate Pulse Rate [Pulse Oximeter] 120 H 120 H Respiratory Rate 18 18 Blood Pressure [Ri ght Radial Artery] 103/93 H Pulse Oximetry 93 Oxygen Delivery Me thod Room Air 05/08/24 15:30 05/08/24 16:00 05/08/24 17:00 Pulse Rate Pulse Rate [Pulse Oximeter] 118 H 106 H 87 Respiratory Rate Blood Pressure [Ri ght Radial Artery] 107/88 94/76 102/74 Pulse Oximetry Oxygen Delivery Me thod 05/08/24 18:00 05/08/24 18:50 05/08/24 20:00 Pulse Rate 112 H Pulse Rate [Pulse Oximeter] 116 H Respiratory Rate Blood Pressure [Ri ght Radial Artery] 111/84 94/68 Pulse Oximetry Oxygen Delivery Mn thod 05/08/24 21:00 05/08/24 22:00 05/08/24 23:00 Pulse Rate Pulse Rate [Pulse Oximeter] 105 H 99 101 H Respiratory Rate Blood Pressure [Ri ght Radial Artery] 93/73 90/70 91/80 Pulse Oximetry 94 Oxygen Delivery Mn thod Room Air 05/08/24 23:00 05/08/24 23:00 05/08/24 23:08 Pulse Rate 97 Pulse Rate [Pulse Oximeter] Respiratory Rate 18 18 Blood Pressure [Ri ght Radial Artery] Pulse Oximetry 94 Oxygen Delivery Mn thod Room Air 05/09/24 02:00 05/09/24 08:58 Pulse Rate 129 H Pulse Rate [Pulse Oximeter] 113 H Respiratory Rate 18 Blood Pressure [Ri ght Radial Artery] 112/78 Pulse Oximetry 94 Oxygen Delivery Me thod Room Air Discharge Plan Discharge Disposition: [facility] Date of Admission: 05/07/24 19:13 Attending Provider on Discharge: Nuris San Primary Care Provider: Ab Goins Condition: Stable Discharge Orders: Transfer of Care to Other Hospital (ORDER); Ordered 05/09/24 Ordered By: Nuris San Oxygen: No Urinary Catheter: No Services not available here: Cardiology to
--- NOTE | 2024-05-09 14:10 | PC.NURSE ---
Pt pleasant and cooperative. Denies pain. A.Fib with RVR continues despite medication interventions. Transfer to [facility] initiated and accepted. Pt left via EMS @ 1110.
== END 2024-05-09 11:10 | disposition short-term general hospital (02) | DRG 308 ==
LOC: ED 18:27 → MEDSURG 18:51
PROVIDERS: Family Medicine; Admitting Provider Internal Medicine; Emergency Provider Family Medicine; PCP Family Medicine; Visit Provider Internal Medicine
DX: I48.20 Chronic atrial fibrillation, unspecified (principal); I50.21 Acute systolic (congestive) heart failure; K57.32 Diverticulitis of large intestine without perforation or abscess without bleeding; I48.0 Paroxysmal atrial fibrillation; Z79.01 Long term (current) use of anticoagulants; Z87.19 Personal history of other diseases of the digestive system; I45.10 Unspecified right bundle-branch block; R10.32 Left lower quadrant pain; R10.2 Pelvic and perineal pain
CPT/HCPCS: 36415; 71045; 74176; 80048; 80053; 80076; 81001; 82803; 83735; 83880; 84145; 84443; 84484; 85025; 85027; 86140; 87086; 87631; 93005; 93306; 99284; 99291; A9270; J1940; J2543; J3490; J7030

== ENCOUNTER 2024-05-09 11:00 | Outpatient (CLI) | payer MEDICARE, OTHER, SELFPAY | END 2024-05-09 11:01 | disposition home or self-care (01) | LOC: AMB 05-14 01:17 | PROVIDERS: PCP Family Medicine; Visit Provider Family Medicine | DX: I48.91 Unspecified atrial fibrillation (principal); R06.09 Other forms of dyspnea; J22 Unspecified acute lower respiratory infection | CPT/HCPCS: A0425; A0427 ==

== ENCOUNTER 2024-08-02 08:39 | Outpatient (CLI) | payer MEDICARE, OTHER, SELFPAY | END 2024-08-02 08:40 | disposition home or self-care (01) | PROVIDERS: PCP Family Medicine; Visit Provider Family Medicine | DX: R97.20 Elevated prostate specific antigen [PSA] (principal); Z12.5 Encounter for screening for malignant neoplasm of prostate | CPT/HCPCS: 84153 ==

== ENCOUNTER 2025-04-23 20:15 | Emergency (ER) | payer MEDICARE, OTHER, SELFPAY ==
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
--- NOTE | 2025-04-23 20:42 | CRLHL7_ITS ---
For Patients: As a result of the Century Cures Act, medical imaging exams and procedure reports are released immediately into your electronic medical record. You may view this report before your referring provider. If you have questions, please contact your health care provider. Indication: Pain, swelling Technique: DVT ultrasound of the right lower extremity. Grayscale and color Doppler imaging utilized. Duplex/spectral analysis used. Compression and augmentation as clinically warranted. Comparison: None Findings: All vessels are grossly compressible without evidence of filling defect to suggest DVT. No superficial thrombosis appreciated. Soft tissues are unremarkable. Impression: No significant sonographic abnormality appreciated. Dictated by Todd Edward MD @ 04/23/2025 10:08:06 PM (Electronically Signed)
[2025-04-23 20:43] VITALS: BP 150/95; PULSE 108; RESP 18; TEMP 36.5; O2SAT 92; BMI 23.6
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
== END 2025-04-23 22:01 | disposition home or self-care (01) ==
LOC: ED 21:47
PROVIDERS: Emergency Provider Internal Medicine; PCP Family Medicine
DX: R60.9 Edema, unspecified (principal); I48.0 Paroxysmal atrial fibrillation; I26.99 Other pulmonary embolism without acute cor pulmonale; Z79.01 Long term (current) use of anticoagulants
CPT/HCPCS: 93971; 99283; 99284

== ENCOUNTER 2025-04-28 10:06 | Outpatient (CLI) | payer MEDICARE, OTHER, SELFPAY | END 2025-04-28 10:07 | disposition home or self-care (01) | PROVIDERS: PCP Family Medicine; Visit Provider Family Medicine | DX: I50.9 Heart failure, unspecified (principal); R97.20 Elevated prostate specific antigen [PSA]; I48.91 Unspecified atrial fibrillation | CPT/HCPCS: 80048; 80061; 84153 ==